=== PATIENT | female | born 1990 | race Hispanic/Latino ===

== ENCOUNTER 2017-10-26 01:05 | Emergency (ER) | payer MEDICARE, MEDICAID ==
[2017-10-26] MEDS ORDERED: Ibuprofen 800 MG TAB ONE (01:50)
== END 2017-10-26 01:55 | disposition home or self-care (01) ==
LOC: ERS 01:05
DX: H60.93 Unspecified otitis externa, bilateral (principal); H66.93 Otitis media, unspecified, bilateral; J45.909 Unspecified asthma, uncomplicated
CPT/HCPCS: 99282

== ENCOUNTER 2017-12-24 11:50 | Emergency (ER) | payer MEDICARE, MEDICAID ==
[2017-12-24 12:51] LABS: #Eosinphils 0.4 thou/uL (0.0-0.7); #Lymphocytes 2.7 thou/uL (1.20-3.40); #Monocytes 0.3 thou/uL (0.11-0.59); #Neutrophils 5.2 thou/uL (1.40-6.50); %Basophils 0.1 % (0.0-1.0); %Eosinophils 4.2 % (0.0-10.0); %Lymphocytes 31.3 % (21.0-51.0); %Monocytes 3.6 % (0.0-10.0); %Neutrophils 60.9 % (42.0-75.0); Hemoglobin 15.2 g/dL (12.0-16.0); Mean Corpuscular HGB CONC 33.5 g/dL (32.0-36.0); Mean Corpuscular Hemoglobin 29.7 pg (27.0-31.0); Mean Corpuscular Volume 88.6 fl (81.0-99.0); Mean Platelet Volume 6.5 fL (7.4-10.4); Platelet Count 313 thou/uL (130-400); RBC Distribution Width 13.1 % (11.5-14.5); Red Blood Cell (RBC) Count 5.11 mill/uL (4.20-5.40); White Blood Cell (WBC) Count 8.6 thou/uL (4.8-10.8)
[2017-12-24 12:55] LABS: BHCG - Serum Negative (NEGATIVE); Pregs Control Background? CLEAR/WHITE (CLR/WHITE); Pregs Control Bar Appear? YES (CONTROL BAR)
[2017-12-24 13:06] LABS: ALT (SGPT) 25 U/L (8-55); AST (SGOT) 17 U/L (5-34); Albumin 4.2 g/dL (3.5-5.0); Alkaline Phosphatase 105 U/L (40-150); Anion Gap 12 mmol/L (10-20); BUN (Urea Nitrogen) 9 mg/dL (7.0-18.7); Bilirubin, Total 0.3 mg/dL (0.2-1.2); Calc. Creatinine Clearance 0 mL/min (70-130); Calcium 9.4 mg/dL (7.8-10.44); Carbon Dioxide 23 mmol/L (22-29); Chloride 107 mmol/L (98-107); Estimated GFR-MDRD Greater than 90; Glucose 89 mg/dL (70-105); Lipase 29 U/L (8-78); Potassium 3.7 mmol/L (3.5-5.1); Protein, Total 7.2 g/dL (6.0-8.3); Sodium 138 mmol/L (136-145)
[2017-12-24] MEDS ORDERED: Ketorolac Tromethamine 30 MG/ML VIAL ONE (13:10)
[2017-12-24] MEDS ORDERED: Morphine 4 MG/ML VIAL ONE (13:10)
[2017-12-24] MEDS ORDERED: Ondansetron HCl/PF 4 MG/2 ML Vial ONE (13:10)
--- NOTE | 2017-12-24 14:20 | CT ---
CT ABDOMEN AND PELVIS WITHOUT IV CONTRAST: Date: 12/24/17 PROVIDED CLINICAL HISTORY: Abdominal pain, vomiting. FINDINGS: Comparison with 05/05/15. Visualized lung bases are free of significant opacity. The solid abdominal organs are suboptimally evaluated without IV contrast, but demonstrate an unremar kable unenhanced CT appearance. There is no evidence for urinary tract calculi or hydronephrosis. No bowel dilatation, inflammatory fat stranding, free fluid, or free air apparent. Partially visualiz ed appendix appears normal. 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 The osseous structures demonstrate no concerning osteoblastic or osteolytic lesions. IMPRESSION: 1. No evidence for urinary tract calculi or hydronephrosis. 2. No evidence for bowel obstruction. POS: JOVANY
== END 2017-12-24 14:21 | disposition home or self-care (01) ==
LOC: ERS 11:50
DX: K59.00 Constipation, unspecified (principal); J45.909 Unspecified asthma, uncomplicated; Z79.899 Other long term (current) drug therapy
CPT/HCPCS: 74176; 80053; 83690; 84703; 85025; 96361; 96374; 96375; J1885; J2270; J2405

== ENCOUNTER 2018-08-13 22:12 | Emergency (ER) | payer MEDICARE, MEDICAID ==
[2018-08-13] MEDS ORDERED: HYDROcodone/Acetaminophen 5/325 mg Tablet ONE (22:43)
== END 2018-08-13 22:48 | disposition home or self-care (01) ==
LOC: ERS 22:12
DX: A60.04 Herpesviral vulvovaginitis (principal)
CPT/HCPCS: 99283

== ENCOUNTER 2019-05-14 16:38 | Inpatient (IN) | payer MEDICARE, MEDICAID ==
--- NOTE | 2019-05-14 18:03 | RAD ---
TWO VIEWS OF THE CHEST: 05/14/19 COMPARISON: 07/23/16 HISTORY: Cough, asthma. FINDINGS: There is no pneumothorax, pleural fluid, lobar consolidation, or alveolar edema. Heart and mediastina l contours are unremarkable. IMPRESSION: No acute findings. POS: OFF
[2019-05-14] MEDS ORDERED: Albuterol Sulfate 2.5 mg/3 ml Neb ONE (18:31)
[2019-05-14] MEDS ORDERED: methylPREDNISolone Sod Succ/PF 125 MG/2 ML VIAL ONE (18:31)
[2019-05-14] MEDS ORDERED: Morphine 2 MG/ML SYRINGE ONE (18:46)
[2019-05-14 18:50] LABS: #Lymphocytes 2.1 thou/uL (1.20-3.40); #Monocytes 0.5 thou/uL (0.11-0.59); #Neutrophils 7.4 thou/uL (1.40-6.50); %Basophils 0.3 % (0.0-1.0); %Eosinophils 0.4 % (0.0-10.0); %Lymphocytes 20.9 % (21.0-51.0); %Neutrophils 73.2 % (42.0-75.0); Hemoglobin 15.7 g/dL (12.0-16.0); Mean Corpuscular HGB CONC 34.5 g/dL (32.0-36.0); Mean Corpuscular Hemoglobin 31.2 pg (27.0-31.0); Mean Corpuscular Volume 90.3 fL (78.0-98.0); Mean Platelet Volume 6.7 fL (7.4-10.4); Platelet Count 303 thou/uL (130-400); RBC Distribution Width 12.1 % (11.5-14.5); Red Blood Cell (RBC) Count 5.03 mill/uL (4.20-5.40)
[2019-05-14] MEDS ORDERED: Magnesium 2 GM/50 ML BAG (IN WATER) ONE (19:13)
[2019-05-14 19:20] LABS: ALT (SGPT) 10 U/L (8-55); AST (SGOT) 13 U/L (5-34); Albumin 4.6 g/dL (3.5-5.0); Alkaline Phosphatase 105 U/L (40-150); Anion Gap 16 mmol/L (10-20); BUN (Urea Nitrogen) 8 mg/dL (7.0-18.7); Bilirubin, Total 0.5 mg/dL (0.2-1.2); Calc. Creatinine Clearance 0 mL/min (70-130); Calcium 9.7 mg/dL (7.8-10.44); Carbon Dioxide 18 mmol/L (22-29); Chloride 107 mmol/L (98-107); Estimated GFR-MDRD Greater than 90; Globulin 3.5 g/dL (2.4-3.5); Glucose 95 mg/dL (70-105); Potassium 3.7 mmol/L (3.5-5.1); Protein, Total 8.1 g/dL (6.0-8.3); Sodium 137 mmol/L (136-145)
[2019-05-14] MEDS ORDERED: Lorazepam 2 MG/ML VIAL ONE (19:38)
[2019-05-14 19:55] LABS: Actual Bicarbonate (HCO3a) 16.9 mEq/L (22-28); Analyzer IN Cardio ER; Base Excess (BEa) -6.1 mEq/L (-2.0 to +3.0); CO2 Tension 27.5 mmHg (35.0-45.0); Calcium, Ionized 1.16 mmol/L (1.12-1.30); Carboxyhemoglobin (COHb) 0.3 gm% (0.0-3.0); Hemoglobin (Hb) 15.4 g/dL (12.0-16.0); O2 Tension (PaO2) 85.4 mmHg (80.0-100.0); Potassium - ABG Lab 3.05 mmol/L (3.70-5.30); pH, Arterial 7.41 (7.35-7.45)
[2019-05-14 19:58] LABS: ALV-art Gradient 29.955 (0-20); Puncture Site RRA
[2019-05-14] MEDS ORDERED: Morphine 4 MG/ML VIAL ONE (20:47)
[2019-05-14] MEDS ORDERED: Ketorolac Tromethamine 30 MG/ML VIAL ONE (21:19)
[2019-05-14] MEDS ORDERED: hydrALAZINE 20 MG/ML VIAL SLOW IVP PRN (21:34)
[2019-05-14] MEDS ORDERED: cloNIDine 0.1 MG TAB PO PRN (21:34)
[2019-05-14] MEDS ORDERED: Diabetic Tussin 200 MG/10 ML UDCUP PO PRN (21:34)
[2019-05-14] MEDS ORDERED: Sodium Chloride 0.65% Nasal 44 ML BOT EA NARE PRN (21:34)
[2019-05-14] MEDS ORDERED: Calcium Carbonate 500 MG ChewTAB PO PRN (21:34)
[2019-05-14] MEDS ORDERED: Senokot S 8.6-50 MG TAB PO PRN ×2 (21:34)
[2019-05-14] MEDS ORDERED: Ondansetron PF 4 MG/2 ML Vial IVP PRN ×2 (21:34)
[2019-05-14] MEDS ORDERED: Acetaminophen 325 MG TAB PO PRN (21:34)
[2019-05-14] MEDS ORDERED: Bisacodyl 5 MG TAB PO PRN ×2 (21:34)
[2019-05-14] MEDS ORDERED: Nitroglycerin 0.4 MG TAB (25 Tab Bottle) SL PRN (21:34)
[2019-05-14] MEDS ORDERED: Bacteriostatic Water 30 ML VIAL FS PRN (21:52)
[2019-05-14] MEDS ORDERED: Mometasone/Formoterol 120 PUFF INHALER INH SCH (22:00)
[2019-05-14] MEDS: methylPREDNISolone Sod Succ 40 MG VIAL IVP SCH (23:33)
[2019-05-14] MEDS ORDERED: Morphine 2 MG/ML SYRINGE SLOW IVP PRN (23:53)
[2019-05-15 00:37] LABS: BHCG - Serum Negative (NEGATIVE); Pregs Control Bar Appear? YES (CONTROL BAR)
[2019-05-15 00:38] LABS: Pregs Control Background? CLEAR/WHITE (CLR/WHITE)
--- NOTE | 2019-05-15 01:10 | HP ---
PRIMARY CARE PHYSICIAN: [facility], Dr. Nguyễn Leyva. CHIEF COMPLAINT: Shortness of breath and cough. HISTORY OF PRESENTING ILLNESS: Ms. Mcnulty is a 28-year-old female with past medical history of asthma, who presented to the ER with above-mentioned complaint. History is mainly obtained by the patient herself with the use of an community support specialist as the patient is deaf. Her mother is at bedside who also supplemented the history. According to the patient and her mom that she has been feeling shortness of breath with some cough for the last about 3 or 4 days. She was seen by the primary care physician and was given a prescription for prednisone and azithromycin, but her symptoms did not improve and progressively got worse. She has nebulizers at home which she is using [id number], but they are not helping. Her cough has gotten worse and she has been having audible wheezes and was really short of breath. She cannot recall any exacerbation or exacerbating or relieving factors. She denies any sick contacts. She has some pain with deep inspiration, but denies any chest pain. She denies any fever or chills recently. She denies having similar symptoms in the past, up to the point where she would need to be hospitalized. Usually her symptoms are quite well controlled with her use of inhalers at home. She reports that she used to be on Singulair, but was taken off it a long time ago. Upon presentation to the ER, she was tachypneic with respirations at 26, but not hypoxic. She was saturating 97% on room air. Her heart rate upon presentation was 74, blood pressure 125/67. Because of the severity of her presentation, she was started on BiPAP. She was never hypoxic, but because of tachycardia and tachypnea, BiPAP was done. Other workup included a negative D-dimer and ABG, which showed a pH of 7.4, PO2 of 85, pCO2 of 27 on BiPAP. Rest of the blood work was also unremarkable. Chest x-ray did not show any evidence of infection. She is now being admitted to [facility] on BiPAP for what seems like an acute asthma exacerbation and the need for further workup. She has received multiple nebulizers, Ativan, morphine, magnesium sulfate 2 g and 30 mg of Toradol along with 125 mg of Solu-Medrol in the ER, but is still complaining of not able to breathe and is tachypneic. Her lung examination, however, has considerably improved. PAST MEDICAL HISTORY: 1. History of asthma. 2. Sensorineural deafness. Patient uses sign language. 3. History of herpes. PAST SURGICAL HISTORY: 1. section x1. 2. Appendectomy. 3. Gallstones. SOCIAL HISTORY: No history of drug, tobacco or alcohol abuse. Patient uses an implant for contraception in her arm. FAMILY HISTORY: Some sort of heart disease and COPD in her father, but no history of any allergies or asthma running in her family. ALLERGIES: NO KNOWN MEDICATION ALLERGIES. HOME MEDICATIONS: Need to be further confirmed, but listed in the ER as followin. Valacyclovir 1 g daily. 2. Prednisone tapering dose. 3. Promethazine p.r.n. 4. Levocetirizine p.r.n. 5. Azithromycin 250 daily. 6. Cromolyn eye drops. REVIEW OF SYSTEMS: A 14-point review of system is done, it is negative except for those mentioned in the history and physical. LABORATORY DATA: CBC is unremarkable. D-dimer less than 0.27. ABG as per HPI. Serum chemistries unremarkable. BNP less than 10. test has not been done yet. Chest x-ray by my review shows no evidence of pleural effusion, edema, or infiltrate. A 12-lead EKG by my review shows sinus tachycardia without any acute ST or T-wave changes. PHYSICAL EXAMINATION: VITAL SIGNS: Upon presentation, heart rate 74, respirations 26, temperature 98.3, saturating 97% on room air, blood pressure 125/67. GENERAL: She is sitting upright and is hyperventilating and has a BiPAP mask on, but does not appear to be in any acute distress. She is nonverbal, because of deafness and uses sign language to discuss her care. HEENT: Examination is incomplete, because of the BiPAP mask. HEAD: Normocephalic and atraumatic. Pupils are equal and reactive to light and accommodation. Mucous membrane appears moist. NECK: Supple without any lymphadenopathy, JVD, or bruit. CHEST: To my evaluation shows no wheezing. Air entry is equal and adequate bilaterally. No rales or crackles are heard either. She is tachycardic with a regular rhythm without any specific murmurs. ABDOMEN: Soft, nontender, nondistended with positive bowel sounds. EXTREMITIES: Free of any cyanosis, clubbing, or edema. NEUROLOGICAL: Examination is nonfocal. SKIN: Free of any rashes or bruises. Feels warm and dry to touch. PSYCHIATRIC: Normal affect. IMPRESSION AND PLAN: Acute respiratory distress without hypoxia or hypercapnia. This is due to acute asthma exacerbation. The patient will be continued on BiPAP for a little bit longer, but her physical examination seems to have much improved. We will request our RT to wean off BiPAP as possible and repeat ABGs in a few hours after removing the BiPAP. We will continue her IV steroids and nebulizers for now. We will also add long-acting inhaled steroids in the form of Dulera. We will request consultation with Pulmonary Medicine, Dr. Chavarria in the morning. The patient currently is hemodynamically stable, but will be admitted to IMCU because of the BiPAP. Her symptoms are being exacerbated by the use of steroids, inhalers in the form of tachycardia and anxiety. We will add mild antianxiety medications as well as empiric antibiotics for now. Care was discussed with her and the mother at bedside with the help of the community support specialist. 1. Check a serum test. 2. History of herpes. We will reconcile her home medication and restart once reconciled. 3. History of asthma versus seasonal allergies. The patient was stable at home for so long and it is unclear what triggered her acute asthma attack at this time. 4. Deep venous thrombosis and gastrointestinal prophylaxis. DISPOSITION: Ms. Mcnulty is currently being admitted to [facility] for acute asthma exacerbation. ESTIMATED LENGTH OF STAY: At least 2 to 3 midnights. Further management will depend upon her clinical course. Job ID: [id number]
[2019-05-15] MEDS ORDERED: Aspirin Chewable 81 MG TAB ONE (02:20)
[2019-05-15] MEDS: Ketorolac Tromethamine 30 MG/ML VIAL IVP PRN ×3 (03:07→20:57)
[2019-05-15 04:31] LABS: #Monocytes 0.2 thou/uL (0.11-0.59); #Neutrophils 7.5 thou/uL (1.40-6.50); %Basophils 0.1 % (0.0-1.0); %Eosinophils 0.2 % (0.0-10.0); %Lymphocytes 11.1 % (21.0-51.0); %Monocytes 2.5 % (0.0-10.0); %Neutrophils 86.1 % (42.0-75.0); Hemoglobin 14.2 g/dL (12.0-16.0); Mean Corpuscular HGB CONC 34.6 g/dL (32.0-36.0); Mean Corpuscular Hemoglobin 31.5 pg (27.0-31.0); Mean Platelet Volume 6.8 fL (7.4-10.4); Platelet Count 264 thou/uL (130-400); Red Blood Cell (RBC) Count 4.51 mill/uL (4.20-5.40); White Blood Cell (WBC) Count 8.8 thou/uL (4.8-10.8)
[2019-05-15 04:55] LABS: Anion Gap 17 mmol/L (10-20); BUN (Urea Nitrogen) 13 mg/dL (7.0-18.7); Calc. Creatinine Clearance 137 mL/min (70-130); Calcium 9.1 mg/dL (7.8-10.44); Carbon Dioxide 17 mmol/L (22-29); Chloride 106 mmol/L (98-107); Estimated GFR-MDRD Greater than 90; Glucose 123 mg/dL (70-105); Magnesium 2.5 mg/dL (1.6-2.6); Potassium 3.6 mmol/L (3.5-5.1); Sodium 136 mmol/L (136-145)
[2019-05-15] MEDS: methylPREDNISolone Sod Succ 40 MG VIAL IVP SCH ×4 (06:05→23:47)
[2019-05-15] MEDS: Lorazepam 2 MG/ML VIAL SLOW IVP PRN ×2 (06:36→20:55)
[2019-05-15] MEDS: Benzonatate 100 MG CAP PO PRN ×2 (06:36→14:01)
[2019-05-15] MEDS: Mometasone/Formoterol 120 PUFF INHALER INH SCH ×2 (07:47→19:51)
[2019-05-15] MEDS: Enoxaparin Sodium 40 MG/0.4 ML SYRINGE SC SCH (09:42)
[2019-05-15] MEDS: Famotidine 20 MG TAB PO SCH ×2 (09:42→20:54)
--- NOTE | 2019-05-15 10:22 | PDOC.HOSPP ---
- Subjective Subjective: Patient seen and examined. No new complaints. No overnight events - Objective Vital Signs & Weight: Vital Signs (12 hours) Temp Pulse Resp BP Pulse Ox 05/15/19 08:32 99 05/15/19 07:48 100 05/15/19 07:16 98.5 F 05/15/19 07:12 113 H 22 H 100 05/15/19 03:48 98.1 F 05/15/19 02:32 109 H 28 H 100 05/15/19 00:35 110 H 40 H 100 05/14/19 23:53 99.0 F 05/14/19 23:37 102 H 36 H 100 05/14/19 23:36 96 36 H 100 05/14/19 23:00 100 05/14/19 22:55 120 H 42 H 100 05/14/19 22:50 100.2 F H 112 H 35 H 117/73 100 Weight Weight 152 lb 8.958 oz Most Recent Monitor Data Heart Rate from ECG 108 NIBP 101/59 NIBP BP-Mean 73 Respiration from ECG 27 SpO2 100 I&O: 05/14/19 05/15/19 05/16/19 06:59 06:59 06:59 Intake Total 280 Output Total 150 Balance 130 Result Diagrams: 05/15/19 04:01 05/15/19 04:01 Radiology Reviewed by me: Yes (chest xray reviewed) EKG Reviewed by me: Yes (nsr) ROS - Review of Systems All systems: All other ROS were reviewed and found negative. Constitutional: denies: fever, chills, sweats, weakness, malaise, other Eyes: denies: pain, vision change, conjunctivae inflammation, eyelid inflammation, redness, other ENT: denies: ear pain, ear discharge, nose pain, nose discharge, nose congestion , mouth pain, mouth swelling, throat pain, throat swelling, other Respiratory: reports: cough, shortness of breath, SOB with excertion. denies: dry, hemoptysis, pleuritic pain, sputum, wheezing, other Cardiovascular: denies: chest pain, palpitations, orthopnea, paroxysmal noc. dyspnea, edema, light headedness, other Gastrointestinal: denies: nausea, vomitting, abdominal pain, diarrhea, constipation, melena, hematochezia, other Genitourinary: denies: dysuria, frequency, incontinence, hematuria, retention, other Musculoskeletal: denies: neck pain, shoulder pain, arm pain, back pain, hand pain, leg pain, foot pain, other Skin: denies: rash, lesions, shaye, bruising, other - Medication Medications: Active Medications Generic Name Dose Route Start Last Admin Trade Name Freq PRN Reason Stop Dose Admin Albuterol/Ipratropium 3 ml 05/14/19 22:30 05/15/19 07:12 Duoneb NEB 3 ml [id number] PIEDAD Administration Benzonatate 100 mg 05/14/19 21:34 05/15/19 06:36 Tessalon PO 100 mg Q6H PRN Administration Cough Enoxaparin Sodium 40 mg 05/15/19 09:00 05/15/19 09:42 Lovenox SC 40 mg 0900 PIEDAD Administration Famotidine 20 mg 05/15/19 09:00 05/15/19 09:42 Pepcid PO 20 mg BID PIEDAD Administration Levofloxacin 750 mg/ Device 150 mls @ 100 mls/hr 05/14/19 22:00 05/14/19 23: 33 IVPB 150 mls Q24HR PIEDAD Administration Ketorolac Tromethamine 15 mg 05/15/19 02:50 05/15/19 03:07 Toradol IVP 05/20/19 02:51 15 mg Q6H PRN Administration Pain Lorazepam 1 mg 05/14/19 21:43 05/15/19 06:36 Ativan SLOW IVP 1 mg Q4H PRN Administration Anxiety/Agitation Methylprednisolone Sodium Succinate 40 mg 05/14/19 23:59 05/15/19 06:05 Solu-Medrol IVP 40 mg Q6HR PIEDAD Administration Mometasone Furoate/Formoterol Fumar 2 puff 05/15/19 06:30 05/15/19 07:47 Dulera 200 Mcg/5 Mcg Inhaler INH 2 puff BID-RT PIEDAD Administration Morphine Sulfate 2 mg 05/14/19 23:53 05/15/19 02:22 Morphine SLOW IVP 2 mg Q4H PRN Administration severe pain Nitroglycerin 0.4 mg 05/14/19 21:34 05/15/19 02:23 Nitrostat SL 0.4 mg Q5MIN PRN Administration Chest Pain Sodium Chloride 10 ml 05/15/19 09:00 05/15/19 09:43 Flush - Normal Saline IVF 10 ml Q12HR PIEDAD Administration - Exam NAD, awake alert Eye: PERRL, anicteric sclera ENT: normocephalic atraumatic, no oropharyngeal lesions Neck: symmetric, no JVD Heart: RRR, no murmur, no gallops, no rubs Respiratory: no rales, wheezes Gastrointestinal: soft, non-tender, non-distended, normal bowel sounds Extremities: no cyanosis, no clubbing, no edema Skin: normal turgor, no lesions, no rashes Neurological: CN's grossly intact, normal sensation to touch, no focal deficits Musculoskeletal: normal tone, normal strength Psychiatric: normal affect, normal behavior Hosp A/P (1) Asthma exacerbation Code(s): J45.901 - UNSPECIFIED ASTHMA WITH (ACUTE) EXACERBATION Status: Acute - Plan old records reviewed/req, plan discussed w/ family, continue antibiotics, respiratory therapy pt has improvement since last night she is off bipap maintaining saturation and not in distress possible transfer to medical floor later today continue steroid, empiric antibiotic, duoneb and dulera discussed with mother and spoke to pt with sign language interpretor
[2019-05-15] MEDS: Benzonatate 100 MG CAP PO SCH ×2 (14:28→20:55)
[2019-05-15] MEDS ORDERED: Benzonatate 100 MG CAP PO SCH (15:00)
--- NOTE | 2019-05-16 03:12 | CON ---
DATE OF CONSULTATION: HISTORY OF PRESENT ILLNESS: Ms. Mcnulty is a pleasant 28-year-old female with a history of asthma. The history is obtained through a embedded systems designer. She is only on Xopenex prior to admission. Her mother is at the bedside, who helped with a history. Apparently for the last 3 to 4 days prior to admission, she has been having asthma symptoms and was treated with Z-Héctor and prednisone. She failed to improve, so she subsequently has been admitted. She says she is feeling better, although her chest still is a little sore and little tight. PAST MEDICAL HISTORY: Remarkable for; 1. Deafness. 2. History of . 3. History of an appendectomy. 4. History of cholelithiasis. SOCIAL HISTORY: She is a nonsmoker, nondrinker, and nondrug user. She has a progesterone implant in her arm reportedly for control. FAMILY HISTORY: Positive for vascular disease and COPD. No history of lung disease in early age. ALLERGIES: SHE IS NOT ALLERGIC TO ANYTHING. MEDICATIONS: Prior to admission, 1. She is on valacyclovir. 2. She is on prednisone and a Z-Héctor. 3. She has a nebulizer at home. REVIEW OF SYSTEMS: 12-point review of systems, otherwise, negative. PHYSICAL EXAMINATION: GENERAL: She is in no distress. VITAL SIGNS: She is afebrile. Heart rate is 98, respiratory rate is 19, oximetry is 96% on 2 L, blood pressure 113/58. HEENT: Pupils are equal. Sclerae anicteric. Extraocular movements full. NECK: Supple LUNGS: Clear. HEART: Regular rhythm. S1 and S2 are normal. ABDOMEN: Soft and nontender. EXTREMITIES: Without clubbing cyanosis, or edema. LABORATORY DATA: White count 8.8, hemoglobin 14.2, platelets 264. Electrolytes are unremarkable. IMPRESSION AND PLAN: Asthma exacerbation, apparently dramatically improved. She may be a candidate for discharge tomorrow depending on her exam. She can go home with a slow steroid taper nebulizer. She would benefit from having either nebulized budesonide or metered dose inhaler steroid, whichever her health care plan would cover with the least expense. I have explained to the mom that Xopenex alone is not enough to keep her asthma under control. TIME SPENT: This is a 50-minute consult, 50% of the time spent on the unit coordinating care. Job ID: [id number]
[2019-05-16] MEDS: methylPREDNISolone Sod Succ 40 MG VIAL IVP SCH (06:00)
[2019-05-16] MEDS: Ketorolac Tromethamine 30 MG/ML VIAL IVP PRN (06:02)
[2019-05-16] MEDS: Mometasone/Formoterol 120 PUFF INHALER INH SCH (07:19)
[2019-05-16 07:26] VITALS: BMI 26.0
[2019-05-16] MEDS: Enoxaparin Sodium 40 MG/0.4 ML SYRINGE SC SCH (09:35)
[2019-05-16] MEDS: Benzonatate 100 MG CAP PO SCH (09:35)
[2019-05-16] MEDS: Famotidine 20 MG TAB PO SCH (09:36)
[2019-05-16 11:29] VITALS: BP 99/53; TEMP 98.6
--- NOTE | 2019-05-16 11:35 | PDOC.HOSPP ---
- Subjective Subjective: Patient seen and examined. No new complaints. No overnight events - Objective Vital Signs & Weight: Vital Signs (12 hours) Temp Pulse Resp BP Pulse Ox 05/16/19 11:28 98.6 F 101 H 18 99/53 L 94 L 05/16/19 08:24 99 05/16/19 07:21 97 05/16/19 07:20 67 20 97 05/16/19 07:19 67 16 97 05/16/19 07:00 97.8 F 05/16/19 03:00 97.8 F 05/15/19 23:51 99.0 F Weight Weight 152 lb 8.958 oz Most Recent Monitor Data Heart Rate from ECG 60 NIBP 115/53 NIBP BP-Mean 73 Respiration from ECG 16 SpO2 96 I&O: 05/15/19 05/16/19 05/17/19 06:59 06:59 06:59 Intake Total 280 1272.5 Output Total 150 1750 Balance 130 -477.5 Result Diagrams: 05/15/19 04:01 05/15/19 04:01 EKG Reviewed by me: Yes ROS - Review of Systems All systems: All other ROS were reviewed and found negative. Eyes: denies: pain, vision change, conjunctivae inflammation, eyelid inflammation, redness, other ENT: denies: ear pain, ear discharge, nose pain, nose discharge, nose congestion , mouth pain, mouth swelling, throat pain, throat swelling, other Respiratory: denies: cough, dry, shortness of breath, hemoptysis, SOB with excertion, pleuritic pain, sputum, wheezing, other Cardiovascular: denies: chest pain, palpitations, orthopnea, paroxysmal noc. dyspnea, edema, light headedness, other Gastrointestinal: denies: nausea, vomitting, abdominal pain, diarrhea, constipation, melena, hematochezia, other Genitourinary: denies: dysuria, frequency, incontinence, hematuria, retention, other Musculoskeletal: denies: neck pain, shoulder pain, arm pain, back pain, hand pain, leg pain, foot pain, other - Medication Medications: Active Medications Generic Name Dose Route Start Last Admin Trade Name Freq PRN Reason Stop Dose Admin Acetaminophen 650 mg 05/14/19 21:34 05/16/19 01:56 Tylenol PO 650 mg Q4H PRN Administration Headache/Fever/Mild Pain (1-3) Albuterol/Ipratropium 3 ml 05/14/19 22:30 05/16/19 07:20 Duoneb NEB 3 ml [id number] PIEDAD Administration Benzonatate 100 mg 05/14/19 21:34 05/15/19 14:01 Tessalon PO 100 mg Q6H PRN Administration Cough Benzonatate 200 mg 05/15/19 15:00 05/16/19 09:35 Tessalon PO 200 mg TID PIEDAD Administration Enoxaparin Sodium 40 mg 05/15/19 09:00 05/16/19 09:35 Lovenox SC 40 mg 0900 PIEDAD Administration Famotidine 20 mg 05/15/19 09:00 05/16/19 09:36 Pepcid PO 20 mg BID PIEDAD Administration Levofloxacin 750 mg/ Device 150 mls @ 100 mls/hr 05/14/19 22:00 05/15/19 23: 45 IVPB 150 mls Q24HR PIEDAD Administration Ketorolac Tromethamine 15 mg 05/15/19 02:50 05/16/19 06:02 Toradol IVP 05/20/19 02:51 15 mg Q6H PRN Administration Pain Lorazepam 1 mg 05/14/19 21:43 05/15/19 20:55 Ativan SLOW IVP 1 mg Q4H PRN Administration Anxiety/Agitation Methylprednisolone Sodium Succinate 40 mg 05/14/19 23:59 05/16/19 06:00 Solu-Medrol IVP 40 mg Q6HR PIEDAD Administration Mometasone Furoate/Formoterol Fumar 2 puff 05/15/19 06:30 05/16/19 07:19 Dulera 200 Mcg/5 Mcg Inhaler INH 2 puff BID-RT PIEDAD Administration Morphine Sulfate 2 mg 05/14/19 23:53 05/15/19 02:22 Morphine SLOW IVP 2 mg Q4H PRN Administration severe pain Nitroglycerin 0.4 mg 05/14/19 21:34 05/15/19 02:23 Nitrostat SL 0.4 mg Q5MIN PRN Administration Chest Pain Sodium Chloride 10 ml 05/15/19 09:00 05/16/19 09:36 Flush - Normal Saline IVF 10 ml Q12HR PIEDAD Administration - Exam NAD, awake alert Eye: PERRL, anicteric sclera ENT: normocephalic atraumatic, no oropharyngeal lesions Neck: supple, symmetric, no JVD Heart: RRR, no murmur, no gallops Respiratory: CTAB, no wheezes, no rales Gastrointestinal: soft, non-tender, non-distended, normal bowel sounds Extremities: no cyanosis, no clubbing Skin: normal turgor, no lesions Neurological: CN's grossly intact, normal sensation to touch, no focal deficits Musculoskeletal: normal tone, normal strength Psychiatric: normal affect, normal behavior Hosp A/P (1) Asthma exacerbation Code(s): J45.901 - UNSPECIFIED ASTHMA WITH (ACUTE) EXACERBATION Status: Acute - Plan old records reviewed/req, plan discussed w/ family medication reviewed as below symptomatic treatment see discharge carol
--- NOTE | 2019-05-16 11:59 | PRG ---
DATE OF SERVICE: 05/16/2019 SUBJECTIVE: Tiffany Mcnulty is in no distress. She has command and control specialist in the room. She has no complaints that she feels much better. OBJECTIVE: VITAL SIGNS: Heart rate in the 60s, respiratory rate in the teens, and oximetry is 97% on 2 L cannula. LUNGS: Completely clear. HEART: Regular rhythm. ABDOMEN: Soft. IMPRESSION AND PLAN: Asthma exacerbation. I have recommended that she has a nebulizer at home. She can use Xopenex in this or albuterol once she has asthma flares. I would recommend managing her with budesonide and Brovana twice a day via nebulizer indefinitely. I have written a prescription for 2-week steroid taper. She can follow up with her primary care provider as she does not appear to have severe asthma and corrected quickly. I did explain to mom that she needs to keep the budesonide indefinitely as long it is paid for as it should be by Medicare. I have written the diagnosis code on the prescription. I will see her as needed in the future. Job ID: [id number]
--- NOTE | 2019-05-16 12:23 | DIS ---
DATE OF ADMISSION: 05/14/2019 DATE OF DISCHARGE: 05/16/2019 PRIMARY CARE PHYSICIAN: [facility]. DISCHARGE DISPOSITION: Home. PRIMARY DISCHARGE DIAGNOSIS: Acute asthma exacerbation. SECONDARY DISCHARGE DIAGNOSIS: None. PRIMARY PROCEDURE/OPERATION: None. RADIOLOGICAL INVESTIGATION: Chest x-ray normal. SIGNIFICANT LABORATORY DATA: Hemoglobin 14.2. D-dimer less than 0.27. Sodium 136, creatinine 0.67. LFT normal. DISCHARGE MEDICATIONS: 1. Budesonide nebulization twice daily. 2. Brovana nebulization twice daily. 3. Xopenex inhaler as needed. 4. Prednisone taper as directed. CONTRAINDICATION: None. CODE STATUS: Full code. INPATIENT NUCLEAR OFFICER: Dr. Davis. TEST RESULTS PENDING ON DISCHARGE: None. ALLERGIES: NO KNOWN DRUG ALLERGIES. DISCHARGE PLAN: Posthospital, the patient will follow up with primary care physician and Dr. Davis in 2 weeks. HOSPITAL COURSE: A 28-year-old female who was admitted by Dr. Emeli Dozier. Please see her H and P for further details. The patient was admitted for asthma exacerbation. She was initially in respiratory distress in the emergency room, and she required transient BiPAP support. She was admitted in IM for close monitoring. The patient was treated with IV steroid as well as DuoNeb therapy, and Dulera. The patient had significant improvement. Pulmonary group was consulted, and they recommended above-mentioned medication upon discharge. The patient was not requiring any oxygen. By the time of discharge, the patient was ambulatory, tolerating p.o. well, and able to speak in full sentence, though the patient does not have any respiratory distress. The patient was seen and examined at bedside today. The patient is deaf and mute and that is why I have spoken with painter helper sign and as well as the patient's mother. Please see my progress note from today for further detail. Job ID: [id number]
--- NOTE | 2019-05-17 14:47 | EKG ---
Test Reason : Blood Pressure : / mmHG Vent. Rate : 141 BPM Atrial Rate : 141 BPM P-R Int : 128 ms QRS Dur : 086 ms QT Int : 292 ms P-R-T Axes : 058 -03 024 degrees QTc Int : 447 ms Sinus tachycardia Inferior infarct , age undetermined Anterolateral infarct , age undetermined Abnormal ECG Confirmed by TORITO DENNIS, ANNMARIE ([id number]), technical editor RAHEEM CHISHOLM ([id number]) on 05/17/2019 2:46:54 PM Referred By: Confirmed By:ANNMARIE UGARTE MD
== END 2019-05-16 11:54 | disposition home or self-care (01) | DRG 203 ==
LOC: ERS 16:38 → IMCU/EMU 23:18
PROVIDERS: ADMIT Internal Medicine; ATTEND Internal Medicine
PROC: 5A09457 Assistance with Respiratory Ventilation, 24-96 Consecutive Hours, Continuous Positive Airway Pressure (ICD-10-PCS; principal; 2019-05-14)
DX: J45.901 Unspecified asthma with (acute) exacerbation (principal); H91.3 Deaf nonspeaking, not elsewhere classified; Z90.49 Acquired absence of other specified parts of digestive tract; Z79.52 Long term (current) use of systemic steroids; Z79.899 Other long term (current) drug therapy
CPT/HCPCS: 36415; 71046; 80048; 80053; 82805; 83735; 83880; 84703; 85025; 85379; 90471; 90732; 93005; 94640; 94660; G0009; J1650; J1885; J1956; J2060; J2270; J2920; J2930; J3475; J7611; J7620

== ENCOUNTER 2020-11-16 08:53 | Emergency (ER) | payer MEDICARE, MEDICAID ==
[2020-11-16] MEDS ORDERED: Mag-Al 1200 mg/1200 mg/30 ML UDCUP ONE (09:39)
[2020-11-16] MEDS ORDERED: Lidocaine Viscous Sol 2% 15 ml UD Cup ONE (09:39)
[2020-11-16 09:45] LABS: #Basophils 0.1 thou/uL (0.0-0.2); #Eosinphils 0.2 thou/uL (0.0-0.7); #Lymphocytes 2.7 thou/uL (1.20-3.40); #Monocytes 0.6 thou/uL (0.11-0.59); #Neutrophils 7.4 thou/uL (1.40-6.50); %Basophils 0.5 % (0.0-1.0); %Eosinophils 1.9 % (0.0-10.0); %Lymphocytes 24.9 % (21.0-51.0); %Monocytes 5.3 % (0.0-10.0); %Neutrophils 67.4 % (42.0-75.0); Hemoglobin 15.1 g/dL (12.0-16.0); Mean Corpuscular HGB CONC 33.4 g/dL (32.0-36.0); Mean Corpuscular Hemoglobin 31.1 pg (27.0-31.0); Mean Corpuscular Volume 93.2 fL (78.0-98.0); Mean Platelet Volume 6.7 fL (7.4-10.4); Platelet Count 229 thou/uL (130-400); RBC Distribution Width 11.7 % (11.5-14.5); Red Blood Cell (RBC) Count 4.85 mill/uL (4.20-5.40); White Blood Cell (WBC) Count 10.9 thou/uL (4.8-10.8)
[2020-11-16 10:05] LABS: ALT (SGPT) 16 U/L (8-55); AST (SGOT) 16 U/L (5-34); Albumin 4.1 g/dL (3.5-5.0); Alkaline Phosphatase 78 U/L (40-110); Anion Gap 12 mmol/L (10-20); BUN (Urea Nitrogen) 9 mg/dL (7.0-18.7); Bilirubin, Total 0.3 mg/dL (0.2-1.2); Calc. Creatinine Clearance 0 mL/min (70-130); Calcium 9.1 mg/dL (7.8-10.44); Carbon Dioxide 21 mmol/L (22-29); Chloride 108 mmol/L (98-107); Globulin 3.1 g/dL (2.4-3.5); Glucose 71 mg/dL (70-105); Potassium 3.6 mmol/L (3.5-5.1); Protein, Total 7.2 g/dL (6.0-8.3); Sodium 137 mmol/L (136-145)
--- NOTE | 2020-11-16 11:11 | ULT ---
US Gallbladder RUQ: 11/16/2020 9:33 AM CLINICAL HISTORY: Right upper quadrant abdominal pain. STUDY: Limited right upper quadrant ultrasound of abdomen. COMPARISON: 05/24/2017 FINDINGS: Liver: Size: Normal. Echogenicity: Normal. Contour: Smooth. Mass: None. Bile ducts: No intrahepatic or extrahepatic biliary dilatation. Common bile duct measures 5 mm. Gallbladder: Cholelithiasis. There is gallbladder wall thickening without pericholecystic fluid. Pancreas: Not well visualized. Right kidney: No pelvicalyceal dilatation. Right kidney measuring 10.2 cm in length. IMPRESSION: Cholelithiasis
[2020-11-16 11:17] LABS: BHCG - Serum POSITIVE (NEGATIVE); Pregs Control Background? CLEAR/WHITE (CLR/WHITE); Pregs Control Bar Appear? YES (CONTROL BAR)
--- NOTE | 2020-11-16 12:11 | ULT ---
EXAM: Pelvic ultrasound HISTORY: Pelvic pain in a female COMPARISON: None TECHNIQUE: Multiple grayscale and color Doppler images were obtained in a transabdominal pelvic ultra sound. Spectral analysis of the Doppler waveforms of the ovaries were performed. FINDINGS: UTERUS: There is an intrauterine gestational sac. This contains a yolk sac and pole. [place]ck-rump length: 1.2 cm which estimates gestational age at 7 weeks 3 days. A heart rate is detected at 140 bpm. No evidence of subchorionic hemorrhage. No free fluid is seen in the pelvis. RIGHT OVARY: Normal flow without focal mass. LEFT OVARY: Normal flow without focal mass. IMPRESSION: Single live intrauterine with estimated age of 7 weeks 3 days.
== END 2020-11-16 14:08 | disposition home or self-care (01) ==
LOC: ERS 08:53
DX: O99.611 Diseases of the digestive system complicating pregnancy, first trimester (principal); K80.20 Calculus of gallbladder without cholecystitis without obstruction; Z3A.01 Less than 8 weeks gestation of pregnancy
CPT/HCPCS: 76705; 76856; 80053; 84484; 84703; 85025; 93005; 93976

== ENCOUNTER 2020-12-06 04:00 | Emergency (ER) | payer MEDICARE, MEDICAID ==
[2020-12-06 04:28] LABS: Bilirubin Negative (Negative); Blood, Urine Negative (Negative); Clarity Clear (Clear); Glucose, Urine (Dipstick) Normal (Negative); Ketone, Urine Negative (Negative); Leukocyte Negative Leu/uL (Negative); Nitrite Negative (Negative); Protein, Urine (Dipstick) Negative (Neg-Trace); Specific Gravity, Urine 1.017 (1.002-1.036); Urobilinogen Normal mg/dL (Less than 2); pH, Urine 6.5 (5.0-9.0)
[2020-12-06 04:57] LABS: Pregnancy Test - Urine (BHCG) POSITIVE (Negative); Pregu Control Background? CLEAR/WHITE (CLR/WHITE); Pregu Control Bar Appear? YES (CONTROL BAR); Specific Gravity 1.017 (1.002-1.036)
[2020-12-06] MEDS ORDERED: Lidocaine Viscous Sol 2% 15 ml UD Cup ONE (05:03)
[2020-12-06] MEDS ORDERED: Ondansetron ODT 8 MG TAB ONE (05:03)
[2020-12-06] MEDS ORDERED: Mag-Al 1200 mg/1200 mg/30 ML UDCUP ONE (05:03)
== END 2020-12-06 05:15 | disposition home or self-care (01) ==
LOC: ERS 04:00
DX: O99.891 Other specified diseases and conditions complicating pregnancy (principal); R10.84 Generalized abdominal pain; O21.9 Vomiting of pregnancy, unspecified; O99.511 Diseases of the respiratory system complicating pregnancy, first trimester; J45.909 Unspecified asthma, uncomplicated; Z3A.10 10 weeks gestation of pregnancy
CPT/HCPCS: 81003; 81025; Q0162

== ENCOUNTER 2021-09-22 16:12 | Emergency (ER) | payer MEDICARE, MEDICAID ==
[2021-09-22 16:49] LABS: #Eosinphils 0.1 thou/uL (0.0-0.7); #Lymphocytes 1.9 thou/uL (1.20-3.40); #Monocytes 1.1 thou/uL (0.11-0.59); %Basophils 0.2 % (0.0-1.0); %Eosinophils 1.1 % (0.0-10.0); %Lymphocytes 18.7 % (21.0-51.0); %Monocytes 10.5 % (0.0-10.0); %Neutrophils 69.5 % (42.0-75.0); Hemoglobin 13.1 g/dL (12.0-16.0); Mean Corpuscular HGB CONC 33.2 g/dL (32.0-36.0); Mean Corpuscular Volume 90.4 fL (78.0-98.0); Mean Platelet Volume 6.1 fL (7.4-10.4); Platelet Count 332 thou/uL (130-400); RBC Distribution Width 12.7 % (11.5-14.5); Red Blood Cell (RBC) Count 4.35 mill/uL (4.20-5.40)
[2021-09-22 17:03] LABS: BHCG - Serum Negative (NEGATIVE); Pregs Control Background? CLEAR/WHITE (CLR/WHITE); Pregs Control Bar Appear? YES (CONTROL BAR)
[2021-09-22 17:09] LABS: ALT (SGPT) 36 U/L (8-55); AST (SGOT) 21 U/L (5-34); Albumin 3.8 g/dL (3.5-5.0); Alkaline Phosphatase 110 U/L (40-110); Anion Gap 12 mmol/L (10-20); BUN (Urea Nitrogen) 7 mg/dL (7.0-18.7); Bilirubin, Total 0.4 mg/dL (0.2-1.2); Calc. Creatinine Clearance 0 mL/min (70-130); Calcium 9.5 mg/dL (7.8-10.44); Carbon Dioxide 20 mmol/L (22-29); Chloride 107 mmol/L (98-107); Globulin 3.9 g/dL (2.4-3.5); Glucose 84 mg/dL (70-105); Lipase 14 U/L (8-78); Protein, Total 7.7 g/dL (6.0-8.3); Sodium 135 mmol/L (136-145)
[2021-09-22] MEDS ORDERED: Ondansetron PF 4 MG/2 ML Vial ONE (17:46)
[2021-09-22] MEDS ORDERED: Acetaminophen 500 MG TAB ONE (17:46)
[2021-09-22 17:48] LABS: Bacteria/HPF 4+ HPF (None Seen); Bilirubin Negative (Negative); Blood, Urine Negative (Negative); Clarity Turbid (Clear); Glucose, Urine (Dipstick) Normal (Negative); Ketone, Urine Negative (Negative); Leukocyte 250 Leu/uL (Negative); Nitrite 2+ (Negative); Protein, Urine (Dipstick) Negative (Neg-Trace); RBC/HPF 0-3 HPF (0-3); Urobilinogen Normal mg/dL (Less than 2); pH, Urine 6.5 (5.0-9.0)
[2021-09-22] MEDS ORDERED: Sulfameth/Trimethoprim DS 800-160mg TAB ONE (19:13)
[2021-09-22] MEDS ORDERED: cefTRIAXone\\ROCEPHIN 1 GM VIAL ONE (19:15)
[2021-09-22] MEDS ORDERED: Morphine 4 MG/ML VIAL ONE (19:16)
== END 2021-09-22 20:21 | disposition home or self-care (01) ==
LOC: ERS 16:12
DX: N12 Tubulo-interstitial nephritis, not specified as acute or chronic (principal); J45.909 Unspecified asthma, uncomplicated; Z79.899 Other long term (current) drug therapy
CPT/HCPCS: 36415; 74177; 80053; 81003; 81015; 83605; 83690; 84703; 85025; 87077; 87086; 87186; 96365; 96375; J0696; J2270; J2405

== ENCOUNTER 2022-03-17 23:37 | Emergency (ER) | payer MEDICARE, MEDICAID | END 2022-03-18 00:27 | disposition home or self-care (01) | LOC: ERS 23:37 | DX: K08.89 Other specified disorders of teeth and supporting structures (principal); H92.02 Otalgia, left ear | CPT/HCPCS: 99282 ==

== ENCOUNTER 2022-12-07 16:18 | Emergency (ER) | payer MEDICARE, MEDICAID ==
[2022-12-07] MEDS ORDERED: Famotidine 20 MG TAB ONE (18:24)
[2022-12-07] MEDS ORDERED: diphenhydrAMINE 25 MG CAP ONE (18:24)
[2022-12-07] MEDS ORDERED: predniSONE 20 MG TAB ONE (18:24)
== END 2022-12-07 19:00 | disposition home or self-care (01) ==
LOC: ERS 16:18
DX: T78.40XA Allergy, unspecified, initial encounter (principal); B37.9 Candidiasis, unspecified
CPT/HCPCS: 99282; J7512

== ENCOUNTER 2022-12-13 09:12 | Emergency (ER) | payer MEDICARE, MEDICAID ==
[2022-12-13] MEDS ORDERED: EPINEPHrine 1 MG/ML VIAL ONE (10:19)
[2022-12-13] MEDS ORDERED: diphenhydrAMINE 50 MG/ML VIAL ONE (10:19)
[2022-12-13 10:59] LABS: #Eosinphils 1.8 thou/uL (0.0-0.7); #Lymphocytes 3.3 thou/uL (1.20-3.40); #Monocytes 0.5 thou/uL (0.11-0.59); #Neutrophils 3.9 thou/uL (1.40-6.50); %Basophils 0.3 % (0.0-1.0); %Eosinophils 18.6 % (0.0-10.0); %Lymphocytes 34.9 % (21.0-51.0); %Monocytes 5.4 % (0.0-10.0); %Neutrophils 40.8 % (42.0-75.0); Hemoglobin 13.2 g/dL (12.0-16.0); Mean Corpuscular HGB CONC 32.8 g/dL (32.0-36.0); Mean Corpuscular Hemoglobin 29.6 pg (27.0-31.0); Mean Corpuscular Volume 90.3 fl (78.0-98.0); Mean Platelet Volume 6.4 fL (7.4-10.4); Platelet Count 406 10x3/uL (130-400); RBC Distribution Width 12.6 % (11.5-14.5); Red Blood Cell (RBC) Count 4.47 mill/uL (4.20-5.40); White Blood Cell (WBC) Count 9.5 10x3/uL (4.8-10.8)
[2022-12-13 11:10] LABS: ALT (SGPT) 18 U/L (8-55); AST (SGOT) 14 U/L (5-34); Albumin 3.8 g/dL (3.5-5.0); Alkaline Phosphatase 111 U/L (40-110); Anion Gap 13 mmol/L (10-20); BUN (Urea Nitrogen) 12 mg/dL (7.0-18.7); Bilirubin, Total 0.3 mg/dL (0.2-1.2); Calc. Creatinine Clearance 0 mL/min (70-130); Calcium 8.7 mg/dL (7.8-10.44); Carbon Dioxide 22 mmol/L (22-29); Chloride 110 mmol/L (98-107); Estimated GFR 125; Globulin 2.5 g/dL (2.4-3.5); Glucose 68 mg/dL (70-105); Potassium 3.7 mmol/L (3.5-5.1); Protein, Total 6.3 g/dL (6.0-8.3); Sodium 141 mmol/L (136-145)
[2022-12-13 12:03] LABS: Bacteria/HPF None Seen HPF (None Seen); Bilirubin Negative (Negative); Blood, Urine 2+ (Negative); Clarity Clear (Clear); Glucose, Urine (Dipstick) Normal (Negative); Ketone, Urine Negative (Negative); Leukocyte 250 Leu/uL (Negative); Nitrite Negative (Negative); Protein, Urine (Dipstick) Negative (Neg-Trace); RBC/HPF 0-3 HPF (0-3); Specific Gravity, Urine 1.006 (1.002-1.036); Squamous Epithelial 0-3 HPF (0-3); Transitional Epithelial 0-3 HPF (None Seen); Urobilinogen Normal mg/dL (Less than 2); pH, Urine 6.5 (5.0-9.0)
== END 2022-12-13 14:59 | disposition home or self-care (01) ==
LOC: ERS 09:12
DX: R21 Rash and other nonspecific skin eruption (principal); R10.9 Unspecified abdominal pain
CPT/HCPCS: 76830; 76856; 80053; 85025; 87086; 93005; J0171; 81003; 81015; 96372; 96374; J1200

== ENCOUNTER 2023-09-17 17:53 | Emergency (ER) | payer MEDICAID, MEDICARE ==
[2023-09-17] MEDS ORDERED: Ipratropium/Albuterol 3 ML NEB ONE ×2 (18:32→20:14)
[2023-09-17] MEDS ORDERED: methylPREDNISolone Sod Succ/PF 125 MG/2 ML VIAL ONE (18:40)
[2023-09-17 21:05] LABS: SARS-CoV-2 NAA Rapid Test Not Detected (NotDetected)
== END 2023-09-17 21:03 | disposition home or self-care (01) ==
LOC: ERS 17:53
DX: J45.901 Unspecified asthma with (acute) exacerbation (principal); Z20.822 Contact with and (suspected) exposure to COVID-19
CPT/HCPCS: 0240U; 94640 ×2; 96372; 99285; J2930; J7620

== ENCOUNTER 2025-05-25 13:33 | Emergency (ER) | payer MEDICARE ==
[~2025-05-25 13:33] MED LIST: Iopamidol 370 76% 100 ML VIAL ONE
[2025-05-25] MEDS ORDERED: Ketorolac Tromethamine 30 MG (1 mL) VIAL ONE (15:10)
[2025-05-25] MEDS ORDERED: Ondansetron PF 4 MG/2 ML Vial ONE (15:10)
[2025-05-25 15:19] LABS: #Basophils 0.06 10x3/uL (0.0-0.2); #Eosinophils 0.24 10x3/uL (0.0-0.7); #Monocytes 0.43 10x3/uL (0.11-0.59); #Neutrophils 4.64 10x3/uL (1.40-6.50); %Basophils 0.8 % (0.0-1.0); %Eosinophils 3.1 % (0.0-10.0); %Lymphocytes 30.9 % (21.0-51.0); %Monocytes 5.5 % (0.0-10.0); %Neutrophils 59.3 % (42.0-75.0); Hematocrit 43.4 % (36.0-47.0); Hemoglobin 14.3 g/dL (12.0-16.0); Mean Corpuscular Hemoglobin 28.5 pg (27.0-31.0); Mean Corpuscular Volume 86.5 fL (78.0-98.0); Platelet Count 287 10x3/uL (130-400); Red Blood Cell (RBC) Count 5.02 mill/uL (4.20-5.40); White Blood Cell (WBC) Count 7.82 10x3/uL (4.8-10.8)
[2025-05-25 15:26] LABS: BHCG - Serum Negative (NEGATIVE); Pregs Control Background? CLEAR/WHITE (CLR/WHITE); Pregs Control Bar Appear? YES (CONTROL BAR)
[2025-05-25 15:28] LABS: CAUTI Indications for Culture Pelvic or flank pain; Glucose, Urine (Dipstick) Normal (Negative); Leukocyte Negative Leu/uL (Negative); Protein, Urine (Dipstick) Negative (Neg-Trace); RBC/HPF 0-3 HPF (0-3); Specific Gravity, Urine 1.014 (1.002-1.036); WBC/HPF 0-3 HPF (0-3)
[2025-05-25 15:30] LABS: Bacteria/HPF 1+ HPF (None Seen)
[2025-05-25 15:32] LABS: Urine Culture Reflex No No
[2025-05-25 15:42] LABS: ALT (SGPT) 11 U/L (Less than 34); AST (SGOT) 24 U/L (11-34); Albumin 4.2 g/dL (3.1-4.5); Alkaline Phosphatase 85 U/L (40-110); Anion Gap 12 mmol/L (10-20); BUN (Urea Nitrogen) 10 mg/dL (7.0-18.7); Bilirubin, Total 0.5 mg/dL (0.3-1.2); Calc. Creatinine Clearance 0 mL/min (70-130); Calcium 8.8 mg/dL (7.8-10.44); Carbon Dioxide 23 mmol/L (22-29); Chloride 107 mmol/L (98-107); Globulin 3.1 g/dL (2.4-3.5); Glucose 76 mg/dL (70-105); Lipase 18 U/L (8-78); Magnesium 2.2 mg/dL (1.6-2.6); Potassium 4.2 mmol/L (3.5-5.1); Sodium 138 mmol/L (136-145)
[2025-05-25 15:45] LABS: Troponin I Less than 0.010 ng/mL (< 0.028)
[2025-05-25] MEDS ORDERED: Famotidine/PF 20 mg/2ml Vial ONE (16:00)
[2025-05-25] MEDS ORDERED: Dicyclomine 20 MG TAB ONE (16:00)
[2025-05-25] MEDS ORDERED: Dexamethasone 10 MG/ML VIAL ONE (17:44)
== END 2025-05-25 18:08 | disposition home or self-care (01) ==
LOC: ERS 13:33
DX: K80.20 Calculus of gallbladder without cholecystitis without obstruction (principal); K50.00 Crohn's disease of small intestine without complications
CPT/HCPCS: 74177; 76705; 80053; 81001; 83690; 83735; 84484; 84703; 85025; 93005; J1100; J1308; J1885; J2405

== ENCOUNTER 2025-07-10 17:43 | Emergency (ER) | payer MEDICARE ==
[~2025-07-10 17:43] MED LIST changes: -Iopamidol 370 76% 100 ML VIAL ONE; +Iopamidol-370 76% 500 ML MDV (1 ML CHARGE) ONE
[2025-07-10] MEDS ORDERED: Ondansetron PF 4 MG/2 ML Vial ONE (19:00)
[2025-07-10 19:34] LABS: #Basophils 0.05 10x3/uL (0.0-0.2); #Eosinophils 0.28 10x3/uL (0.0-0.7); #Monocytes 0.43 10x3/uL (0.11-0.59); #Neutrophils 4.55 10x3/uL (1.40-6.50); %Basophils 0.6 % (0.0-1.0); %Eosinophils 3.4 % (0.0-10.0); %Lymphocytes 34.5 % (21.0-51.0); %Monocytes 5.3 % (0.0-10.0); %Neutrophils 56.0 % (42.0-75.0); Hematocrit 44.6 % (36.0-47.0); Hemoglobin 14.2 g/dL (12.0-16.0); Mean Corpuscular Hemoglobin 27.8 pg (27.0-31.0); Mean Corpuscular Volume 87.5 fL (78.0-98.0); Platelet Count 309 10x3/uL (130-400); Red Blood Cell (RBC) Count 5.10 mill/uL (4.20-5.40); White Blood Cell (WBC) Count 8.14 10x3/uL (4.8-10.8)
[2025-07-10 20:02] LABS: ALT (SGPT) 8 U/L (Less than 34); AST (SGOT) 18 U/L (11-34); Albumin 4.6 g/dL (3.1-4.5); Alkaline Phosphatase 88 U/L (40-110); Anion Gap 14 mmol/L (10-20); BUN (Urea Nitrogen) 8 mg/dL (7.0-18.7); Bilirubin, Total 0.3 mg/dL (0.3-1.2); Calc. Creatinine Clearance 0 mL/min (70-130); Calcium 9.5 mg/dL (7.8-10.44); Carbon Dioxide 23 mmol/L (22-29); Chloride 110 mmol/L (98-107); Globulin 2.9 g/dL (2.4-3.5); Glucose 85 mg/dL (70-105); Lipase 20 U/L (8-78); Potassium 4.0 mmol/L (3.5-5.1); Sodium 143 mmol/L (136-145)
[2025-07-10 20:11] LABS: Bacteria/HPF None Seen HPF (None Seen); CAUTI Indications for Culture Dysuria,urgency,freq; Glucose, Urine (Dipstick) Normal (Negative); Leukocyte Negative Leu/uL (Negative); Protein, Urine (Dipstick) Negative (Neg-Trace); RBC/HPF 0-3 HPF (0-3); Specific Gravity, Urine 1.012 (1.002-1.036); WBC/HPF 0-3 HPF (0-3)
[2025-07-10 20:14] LABS: Urine Culture Reflex No No
== END 2025-07-10 21:30 | disposition home or self-care (01) ==
LOC: ERS 17:43
DX: K80.20 Calculus of gallbladder without cholecystitis without obstruction (principal); H91.90 Unspecified hearing loss, unspecified ear
CPT/HCPCS: 74177; 76705; 80053; 81001; 83690; 84702; 85025; 96374; 96375; 99284; Q9967